=== PATIENT | male | born 1960 | race Caucasian/White ===

== ENCOUNTER 2016-12-14 23:02 | Emergency (ER) | payer OTHER ==
[2016-12-14 23:26] LABS: BASOPHIL 0.7 % (0-2); EOSINOPHIL 2.6 % (0-5); HCT 42.3 % (42.0-52.0); HGB 15.8 g/dl (13.2-18.0); LYMPHOCYTE 40.6 % (15-48); MCHC 37.4 g/dL (32.0-36.0); MCV 88.3 fL (78.0-100.0); MONOCYTE 8.6 % (0-12); MPV 10.5 fL (6.0-9.5); NEUTROPHIL 47.5 % (41-80); PLT 226 K/uL (150-400); RBC 4.79 M/uL (4.70-6.00); WBC 7.7 K/uL (4.0-10.5)
[2016-12-14 23:35] LABS: INR 0.98 (0.9-1.2); PROTHROMBIN TIME 12.6 SECONDS (11.7-14.0); PTT 26.7 SECONDS (23.2-31.4)
[2016-12-14 23:46] LABS: CKMB 1.97 ng/mL (0.97-4.94); MYOGLOBIN 32 ng/mL (26-65); PRO-BNP 24 pg/mL (0-125); TROPONIN T < 0.010 ng/mL
[2016-12-14 23:47] LABS: BILIRUBIN - TOTAL 0.2 mg/dL (0.1-1.0); CREATININE 1.2 mg/dL (0.7-1.2); GLOBULIN (CALCULATION) 2.4 g/dL (2.2-4.2); MAGNESIUM 2.11 mg/dL (1.40-2.10); TOTAL PROTEIN 6.4 g/dL (6.4-8.3)
== END 2016-12-15 02:30 | disposition home or self-care (01) ==
LOC: FER 23:02
PROVIDERS: Emergency Medicine
DX: R07.9 Chest pain, unspecified (principal); R06.02 Shortness of breath; R20.0 Anesthesia of skin; Z82.49 Family history of ischemic heart disease and other diseases of the circulatory system
CPT/HCPCS: 36415; 71010; 80053; 82550; 82553; 83735; 83874; 83880; 84484; 85025; 85379; 85610; 85730; 93005; J2270

== ENCOUNTER 2022-02-15 01:12 | Emergency (ER) | payer OTHER ==
[~2022-02-15 01:12] MED LIST: CARAFATE S500 MG/TSP PO; CARAFATE1 GM PO; NEURONTIN300 MG PO; PRAVASTATIN SOD10 M1 PO; PROTONIX 40MG T40 MG PO; ROBAXIN500 MG PO; ZANTAC150 MG PO
== END 2022-02-15 02:10 | disposition home or self-care (01) ==
LOC: FER 01:12
DX: S31.30XA Unspecified open wound of scrotum and testes, initial encounter (principal); E11.9 Type 2 diabetes mellitus without complications; Z79.84 Long term (current) use of oral hypoglycemic drugs; X58.XXXA Exposure to other specified factors, initial encounter
CPT/HCPCS: 99283